=== PATIENT | male | born 1990 | race Two or more races ===

== ENCOUNTER 2017-08-21 13:50 | Emergency (ER) | payer SELFPAY | END 2017-08-21 13:51 | disposition left against medical advice (07) | LOC: ER 13:50 | DX: Z53.9 Procedure and treatment not carried out, unspecified reason (principal); M25.561 Pain in right knee ==

== ENCOUNTER 2019-05-18 16:04 | Emergency (ER) | payer OTHER ==
[2019-05-18] MEDS ORDERED: TETRACAINE HCL 0.5% OPH SOLN 4 ML ONE (16:16)
[2019-05-18] MEDS ORDERED: TETRACAINE HCL 0.5% OPH SOLN 4 ML OD ONE (16:38)
[2019-05-18] MEDS ORDERED: DIPH/PERTUSS(ACELL)/TETANUS VAC/PF 0.5 ML SYR (>=10YO) IM ONE (16:41)
--- NOTE | 2019-05-18 16:42 | ER Document Report ---
ED General - General Chief Complaint: Foreign Body in Eye Stated Complaint: FOREIGN BODY IN LEFT EYE Time Seen by Provider: 05/18/19 16:24 TRAVEL OUTSIDE OF THE [place] IN LAST 30 DAYS: No - HPI Notes: Patient is a 28-year-old male no significant past medical history presents complaining of foreign body sensation of left eye that occurred after he got off of work yesterday. 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 He did irrigate his eye thereafter without any relief. He has noticed redness, tearing, and increased discomfort since that time. Patient states that he has not noticed any other changes in his vision. No recent illness. Denies drug allergies. He does not wear contact lenses. Unknown last tetanus. Denies any headache, fever, neck pain, URI, sore throat, chest pain, palpitations, syncope, cough, shortness of breath, wheeze, dyspnea, abdominal pain, nausea/vomiting/diarrhea, urinary retention, dysuria, hematuria, or rash. - Related Data Allergies/Adverse Reactions: No Known Allergies Allergy (Verified 05/18/19 16:05) Past Medical History - Social History Smoking Status: Unknown if Ever Smoked Family History: Reviewed & Not Pertinent Review of Systems - Review of Systems -: Yes All other systems reviewed and negative Physical Exam - Notes Notes: PHYSICAL EXAMINATION: GENERAL: Well-appearing, well-nourished and in no acute distress. A&Ox4 HEAD: Atraumatic, normocephalic. EYES: Pupils equal round and reactive to light, extraocular movements intact, sclera anicteric, left conjunctiva injected with tearing noted. Rt conjunctiva wnl. Non-tender to palp of the globe and eye itself. No surrounding erythema or swelling noted. Visual acuity 20/25 b/l and in each eye (performed by myself at bedside with my own eye chart). Wood's lamp/flourescein: Lt eye: + abrasion top right cornea. No laceration, ulceration, or mamadou sign noted. No obvious foreign body appreciated. ENT: EAC clear b/l. TM's intact b/l without erythema, fluid, or perforation. Nares patent and without discharge. oropharynx clear without exudates. No tonsilar hypertrophy or erythema. Moist mucous membranes. No sinus tenderness. Uvula midline. No palatine shift. No airway compromise. No drooling or hoarseness. NECK: Normal range of motion, supple without lymphadenopathy. No rigidity/meningismus. LUNGS: Breath sounds clear to auscultation bilaterally and equal. No wheezes rales or rhonchi. HEART: Regular rate and rhythm without murmurs, rubs, gallops. NEUROLOGICAL: Cranial nerves grossly intact. Normal speech, normal gait. Normal sensory, motor exams PSYCH: Normal mood, normal affect. SKIN: Warm, Dry, normal turgor, no rashes or lesions noted. Course - Re-evaluation Re-evalutation: 05/18/19 17:07 Patient is an afebrile, well-hydrated, 28-year-old male who presents to the emergency department with Left eye corneal abrasion. Vitals are acceptable without significant tachycardia, tachypnea, or hypoxia. PE is otherwise unremarkable. See eye exam. Patient is nontoxic-appearing and is able to tolerate p.o. without difficulty. No labs or imaging warranted. Low suspicion for any retained corneal or lid foreign body, deep space infection including orbital cellulitis/abscess, acute glaucoma, penetrating globe injury, retinal detachment, meningitis, sepsis, fracture, compartment syndrome. I will send home with a prescription for erythromycin ointment to use as directed. Conservative measures otherwise for symptoms with proper handwashing. Recheck with your PCM in 3-5 days. Schedule follow-up with ophthalmology. Return to the ED with any worsening/concerning symptoms otherwise as reviewed in discharge. Patient is in agreement. Discharge - Discharge Clinical Impression: Left corneal abrasion Qualifiers: Encounter type: initial encounter Qualified Code(s): S05.02XA - Injury of conjunctiva and corneal abrasion without foreign body, left eye, initial encounter Condition: Stable Disposition: HOME, SELF-CARE Instructions: Corneal Abrasion ([facility]) Additional Instructions: Keep eyes clean Avoid scratching/touching eyes Wash hands regularly Use eye drops as directed Maintain adequate fluid intake tylenol/ibuprofen as needed over the counter cold medication as needed for symptoms F/u: with your PCM in 2-3 days for a recheck Consider consult with Ophthalmology for ongoing/worsening symptoms Return to the ED with any worsening symptoms and/or development of fever, headache, changes in vision, eye pain, worsening eye redness, redness around the eyes, purulent discharge, sore throat, facial swelling, neck pain/stiffness, chest pain, palpitations, syncope, shortness of breath, trouble breathing, abdominal pain, n/v/d, blood in stool/urine, dysuria, or other worsening symptoms that are concerning to you. Prescriptions: Erythromycin Base [Erythromycin Oph 1 gm Oint Ud] 1 applic OP QID #1 tube Referrals: JACKSON DERAS MD [ACTIVE STAFF] - Follow up in 3-5 days
[2019-05-18 17:15] VITALS: BP 150/93
== END 2019-05-18 17:20 | disposition home or self-care (01) ==
LOC: ER 16:04
DX: S05.02XA Injury of conjunctiva and corneal abrasion without foreign body, left eye, initial encounter (principal); X58.XXXA Exposure to other specified factors, initial encounter
CPT/HCPCS: 90471; 90715; 99283